=== PATIENT | male | born 1960 | race Caucasian/White ===

== ENCOUNTER 2020-12-08 20:50 | Emergency (ER) | payer OTHER ==
[2020-12-08] MEDS ORDERED: SODIUM CHLORIDE 0.9% 1,000 ML IV ONE (21:44)
[2020-12-08] MEDS ORDERED: HYDROmorphone 1 MG/ML 1 ML SYRINGE IVP STA (21:45)
[2020-12-08 22:12] LABS: Basophils # (A) 0.1 k/uL (0-0.2); Basophils % (A) 1 %; Eosinophils # (A) 0.4 k/uL (0-0.7); Eosinophils % (A) 3 %; HCT 50.8 % (39.0-53.0); HGB 17.1 gm/dL (13.0-17.5); Lymphocytes # (A) 2.1 k/uL (1.0-4.8); Lymphocytes % (A) 15 %; MCH 31.6 pg (25.0-35.0); MCHC 33.6 g/dL (31.0-37.0); MCV 93.9 fL (80.0-100.0); Mean Platelet Volume 8.4; Monocytes # (A) 0.9 k/uL (0-1.0); Monocytes % (A) 7 %; Neutrophils # (A) 9.9 k/uL (1.3-7.7); Neutrophils % (A) 73 %; Platelet Count 278 k/uL (150-450); RBC 5.41 m/uL (4.30-5.90); WBC 13.6 k/uL (3.8-10.6)
[2020-12-08 22:18] LABS: Appearance,Urine Cloudy (Clear); Bacteria,Urine Occasional /hpf; Bilirubin,Urine Negative (Negative); Blood,Urine Large (Negative); Color,Urine Yellow; Glucose,Urine (UA) Negative (Negative); Ketones,Urine Negative (Negative); Leukocyte Esterase,Urine Large (Negative); Mucus,Urine Many /hpf; Nitrite,Urine Positive (Negative); PH, Urine 6.5 (5.0-8.0); Protein,Urine 2+ (Negative); RBC,Urine >182 /hpf (0-5); Specific Gravity,Urine 1.015 (1.001-1.035); Squamous Epithelial Cell,Urine <1 /hpf (0-4); Urobilinogen,Urine <2.0 mg/dL (<2.0); WBC,Urine 97 /hpf (0-5)
[2020-12-08 22:23] LABS: ALT 15 U/L (4-49); AST 19 U/L (17-59); African American GFR (CKD) >90 (>60 ml/min/1.73 sqM); Albumin 4.3 g/dL (3.5-5.0); Alkaline Phosphatase 90 U/L (38-126); Amylase 100 U/L (30-110); Anion Gap 8 mmol/L; Blood Urea Nitrogen 10 mg/dL (9-20); Calcium 9.6 mg/dL (8.4-10.2); Carbon Dioxide 25 mmol/L (22-30); Chloride 103 mmol/L (98-107); Glucose 104 mg/dL (74-99); Lipase 107 U/L (23-300); Non-African American GFR(CKD) >90 (>60 ml/min/1.73 sqM); Potassium 4.5 mmol/L (3.5-5.1); Sodium 136 mmol/L (137-145); Total Bilirubin 0.5 mg/dL (0.2-1.3); Total Protein 7.2 g/dL (6.3-8.2)
--- NOTE | 2020-12-08 22:37 | CT ---
EXAMINATION TYPE: CT abdomen pelvis w con DATE OF EXAM: 12/08/2020 COMPARISON: None HISTORY: Suprapubic abdominal pain. Patient being treated for UTI. CT DLP: 1129.8 mGycm Automated exposure control for dose reduction was used. CONTRAST: Performed with IV Contrast, patient injected with 100 mL of Isovue 300. Images obtained from the diaphragm to the floor the pelvis with IV contrast. Lung bases are clear. There is no pleural effusion. Heart size is normal. Liver is intact. There are clips from cholecystectomy. Spleen appears normal. Stomach appears normal. There is no evidence of pancreatic mass. The bile ducts are not dilated. There is no adrenal mass. Kidneys show satisfactory contrast opacific ation. There is no hydronephrosis. Delayed images show normal renal excretion. Bladder is distended. Prostate is enlarged and measures 7 cm. There is De Santiago catheter that is malpositioned with the balloo n in the posterior urethra. There are calcifications in the dependent urinary bladder measuring up to 14 mm. There is small amount of air in the urinary bladder. There is no mesenteric edema. There is no ascites or free air. I see no bowel obstruction. There are some small bowel loops distended with fluid and measure up to 2.7 cm. Appendix is intact. There is no sign of appendicitis. There is multilevel moderate spondylotic changes in the lumbar spine. There is no compression fractur e. The bony pelvis is intact. There is moderately severe osteoarthritis in the right hip joint. There is deformity of the femoral head consistent with chronic avascular necrosis and partial collapse of the articular surface. IMPRESSION: Dilated urinary bladder measures 14 cm in length. Enlarged prostate. There is malposition of the Fole y catheter in the posterior urethra. Bladder calculi. Advanced osteoarthritis in the right hip joint with evidence for chronic avascular necrosis of the fe moral head. There are a few small bowel fluid levels that could relate to mild small bowel ileus.
--- NOTE | 2020-12-08 22:51 | ED ---
General Adult HPI - General Chief complaint: Abdominal Pain Stated complaint: Abdominal pain Time Seen by Provider: 12/08/20 21:25 Source: patient Mode of arrival: ambulatory Limitations: no limitations - History of Present Illness Initial comments: Patient presents to the ED complaining of having suprapubic abdominal pain and pressure for the past 2-3 days. Patient states that he was seen at [facility] earlier today and was given the dose of antibiotics. Patient states that no imaging study was done at that hospital. Patient states that he has a chronic indwelling Mathis catheter, and he states that he noticed some hematuria earlier today. Patient denies trauma or injury, fever or chills, headache, chest pain, dyspnea, dizziness, upper abdominal pain, back or flank pain, nausea or vomiting, diarrhea or constipation, bloody or melanotic stool, or any other symptoms or complaints. Patient denies anticoagulant medication use. - Related Data Allergies Allergy/AdvReac Type Severity Reaction Status Date / Time No Known Allergies Allergy Verified 12/08/20 20:58 Review of Systems ROS Statement: Those systems with pertinent positive or pertinent negative responses have been documented in the HPI. ROS Other: All systems not noted in ROS Statement are negative. Past Medical History Additional Past Medical History / Comment(s): mathis History of Any Multi-Drug Resistant Organisms: None Reported Past Surgical History: No Surgical Hx Reported Past Psychological History: No Psychological Hx Reported Smoking Status: Current every day smoker Past Alcohol Use History: None Reported Past Drug Use History: None Reported General Exam Limitations: no limitations General appearance: alert, in no apparent distress Head exam: Present: atraumatic Eye exam: Present: normal appearance, EOMI ENT exam: Present: mucous membranes moist Neck exam: Present: other (Trachea is in midline) Respiratory exam: Present: normal lung sounds bilaterally. Absent: respiratory distress, wheezes, rales, rhonchi, stridor Cardiovascular Exam: Present: regular rate, normal rhythm, normal heart sounds, other (Normal radial pulses bilaterally) GI/Abdominal exam: Present: soft, other (Mild suprapubic abdominal tenderness). Absent: distended, guarding, rebound Extremities exam: Absent: tenderness, pedal edema, calf tenderness Back exam: Absent: CVA tenderness (R), CVA tenderness (L) Neurological exam: Present: alert, oriented X3. Absent: motor sensory deficit Psychiatric exam: Present: normal affect, normal mood Skin exam: Present: warm, dry, intact, normal color Course Vital Signs 12/08/20 12/09/20 20:58 00:35 Temperature 98.3 F 98 F Pulse Rate 88 77 Respiratory 16 18 Rate Blood Pressure 140/97 132/82 O2 Sat by Pulse 97 98 Oximetry - Reevaluation(s) Reevaluation #1: 12/08/20 23:51 Patient is awaiting Mathis catheter replacement at this time. I suspect that the patient's symptoms are likely secondary to Mathis catheter malposition and urinary retention/bladder distention. Case was endorsed to Dr. Suh (secondary to end of my shift). Dr. Suh to take over care of the patient at this time. Medical Decision Making - Lab Data Result diagrams: 12/08/20 22:00 12/08/20 22:00 Lab Results 12/08/20 12/08/20 12/08/20 Range/Units 22:00 22:00 22:00 WBC 13.6 H (3.8-10.6) k/uL RBC 5.41 (4.30-5.90) m/uL Hgb 17.1 (13.0-17.5) gm/dL Hct 50.8 (39.0-53.0) % MCV 93.9 (80.0-100.0) fL MCH 31.6 (25.0-35.0) pg MCHC 33.6 (31.0-37.0) g/dL RDW 13.0 (11.5-15.5) % Plt Count 278 (150-450) k/uL MPV 8.4 Neutrophils % 73 % Lymphocytes % 15 % Monocytes % 7 % Eosinophils % 3 % Basophils % 1 % Neutrophils # 9.9 H (1.3-7.7) k/uL Lymphocytes # 2.1 (1.0-4.8) k/uL Monocytes # 0.9 (0-1.0) k/uL Eosinophils # 0.4 (0-0.7) k/uL Basophils # 0.1 (0-0.2) k/uL Sodium 136 L (137-145) mmol/L Potassium 4.5 (3.5-5.1) mmol/L Chloride 103 (98-107) mmol/L Carbon Dioxide 25 (22-30) mmol/L Anion Gap 8 mmol/L BUN 10 (9-20) mg/dL Creatinine 0.68 (0.66-1.25) mg/dL Est GFR (CKD-EPI)AfAm >90 (>60 ml/min/1.73 sqM) Est GFR (CKD-EPI)NonAf >90 (>60 ml/min/1.73 sqM) Glucose 104 H (74-99) mg/dL Plasma Lactic Acid Joel (0.7-2.0) mmol/L Calcium 9.6 (8.4-10.2) mg/dL Total Bilirubin 0.5 (0.2-1.3) mg/dL AST 19 (17-59) U/L ALT 15 (4-49) U/L Alkaline Phosphatase 90 (38-126) U/L Total Protein 7.2 (6.3-8.2) g/dL Albumin 4.3 (3.5-5.0) g/dL Amylase 100 (30-110) U/L Lipase 107 (23-300) U/L Urine Color Yellow Urine Appearance Cloudy (Clear) Urine pH 6.5 (5.0-8.0) Ur Specific [place] 1.015 (1.001-1.035) Urine Protein 2+ H (Negative) Urine Glucose (UA) Negative (Negative) Urine Ketones Negative (Negative) Urine Blood Large H (Negative) Urine Nitrite Positive (Negative) Urine Bilirubin Negative (Negative) Urine Urobilinogen <2.0 (<2.0) mg/dL Ur Leukocyte Esterase Large H (Negative) Urine RBC >182 H (0-5) /hpf Urine WBC 97 H (0-5) /hpf Ur Squamous Epith Cells <1 (0-4) /hpf Urine Bacteria Occasional H (None) /hpf Urine Mucus Many H (None) /hpf 12/08/20 Range/Units 22:00 WBC (3.8-10.6) k/uL RBC (4.30-5.90) m/uL Hgb (13.0-17.5) gm/dL Hct (39.0-53.0) % MCV (80.0-100.0) fL MCH (25.0-35.0) pg MCHC (31.0-37.0) g/dL RDW (11.5-15.5) % Plt Count (150-450) k/uL MPV Neutrophils % % Lymphocytes % % Monocytes % % Eosinophils % % Basophils % % Neutrophils # (1.3-7.7) k/uL Lymphocytes # (1.0-4.8) k/uL Monocytes # (0-1.0) k/uL Eosinophils # (0-0.7) k/uL Basophils # (0-0.2) k/uL Sodium (137-145) mmol/L Potassium (3.5-5.1) mmol/L Chloride (98-107) mmol/L Carbon Dioxide (22-30) mmol/L Anion Gap mmol/L BUN (9-20) mg/dL Creatinine (0.66-1.25) mg/dL Est GFR (CKD-EPI)AfAm (>60 ml/min/1.73 sqM) Est GFR (CKD-EPI)NonAf (>60 ml/min/1.73 sqM) Glucose (74-99) mg/dL Plasma Lactic Acid Joel 1.4 (0.7-2.0) mmol/L Calcium (8.4-10.2) mg/dL Total Bilirubin (0.2-1.3) mg/dL AST (17-59) U/L ALT (4-49) U/L Alkaline Phosphatase (38-126) U/L Total Protein (6.3-8.2) g/dL Albumin (3.5-5.0) g/dL Amylase (30-110) U/L Lipase (23-300) U/L Urine Color Urine Appearance (Clear) Urine pH (5.0-8.0) Ur Specific [place] (1.001-1.035) Urine Protein (Negative) Urine Glucose (UA) (Negative) Urine Ketones (Negative) Urine Blood (Negative) Urine Nitrite (Negative) Urine Bilirubin (Negative) Urine Urobilinogen (<2.0) mg/dL Ur Leukocyte Esterase (Negative) Urine RBC (0-5) /hpf Urine WBC (0-5) /hpf Ur Squamous Epith Cells (0-4) /hpf Urine Bacteria (None) /hpf Urine Mucus (None) /hpf - Radiology Data CT abdomen/pelvis with IV contrast: Dilated urinary bladder measures 14 cm in length, enlarged prostate, there is malposition of the Mathis catheter in the posterior urethra, bladder calculi, advanced osteoarthritis in the right hip joint with evidence for chronic avascular necrosis of the femoral head, there are a few small bowel fluid levels that could relate to mild small bowel ileus Disposition Clinical Impression: Urolithiasis, Urinary retention, Mathis catheter problem, UTI (urinary tract infection) Disposition: HOME SELF-CARE Is patient prescribed a controlled substance at d/c from ED?: No Referrals: None,Stated [Primary Care Provider] - 1-2 days Tho Herrera MD [STAFF PHYSICIAN] - 1-2 days Pepe Kerr MD [REFERRING] - 1-2 days
[2020-12-08] MEDS ORDERED: LIDOCAINE URO-JET JELLY 2% 5 ML KIT URETHRAL ONE (22:58)
[2020-12-09 00:35] VITALS: BP 132/82; PULSE 77; RESP 18; TEMP 98
== END 2020-12-09 00:35 | disposition home or self-care (01) ==
LOC: EC 20:50
DX: T83.021A Displacement of indwelling urethral catheter, initial encounter (principal); N21.0 Calculus in bladder; N39.0 Urinary tract infection, site not specified; M16.11 Unilateral primary osteoarthritis, right hip; K56.7 Ileus, unspecified; N40.0 Benign prostatic hyperplasia without lower urinary tract symptoms; F17.200 Nicotine dependence, unspecified, uncomplicated; Y84.6 Urinary catheterization as the cause of abnormal reaction of the patient, or of later complication, without mention of misadventure at the time of the procedure
CPT/HCPCS: 36415; 80053; 82150; 83605; 83690; 85025; 81001; 87086; 74177; 99284; 51702; 96374; 96361 ×2; J1170; Q9967

== ENCOUNTER 2021-05-17 19:22 | Emergency (ER) | payer OTHER ==
[2021-05-17 19:41] VITALS: BP 134/88; PULSE 95; RESP 18; TEMP 97.5
--- NOTE | 2021-05-17 20:48 | ED ---
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 Patient states he feels fine and has no complaints. Patient is unclear why he is here. Patient is not supposed be on a medications as far she knows. Patient does not feel he has missed any appointments. Patient denies any hallucinations. Patient denies any alcohol or street drug use. No physical complaints. Patient has been sleeping well. Patient has been eating and drinking well. Petition has concern for hallucinations and poor hygiene. (Sourav Rizzo) - Related Data Home Medications Medication Instructions Recorded Confirmed No Known Home Medications 05/17/21 05/17/21 Allergies Allergy/AdvReac Type Severity Reaction Status Date / Time No Known Allergies Allergy Verified 05/17/21 22:00 Review of Systems ROS Other: All systems not noted in ROS Statement are negative. Constitutional: Denies: fever Eyes: Denies: eye pain ENT: Denies: ear pain Respiratory: Denies: cough Cardiovascular: Denies: chest pain Endocrine: Denies: fatigue Gastrointestinal: Denies: abdominal pain Genitourinary: Denies: urgency Musculoskeletal: Denies: back pain Skin: Denies: rash Neurological: Denies: weakness <Sourav Rizzo - Last Filed: 05/17/21 20:45> ROS Other: All systems not noted in ROS Statement are negative. <Silverio Suh - Last Filed: 05/18/21 02:14> ROS Statement: Those systems with pertinent positive or pertinent negative responses have been documented in the HPI. Past Medical History Additional Past Medical History / Comment(s): mathis History of Any Multi-Drug Resistant Organisms: None Reported Past Surgical History: No Surgical Hx Reported Past Psychological History: No Psychological Hx Reported Smoking Status: Current every day smoker Past Alcohol Use History: None Reported Past Drug Use History: None Reported <Sourav Rizzo - Last Filed: 05/17/21 20:45> General Exam Limitations: no limitations General appearance: alert, in no apparent distress, other Head exam: Present: normocephalic Eye exam: Present: normal appearance Neck exam: Present: normal inspection Respiratory exam: Present: normal lung sounds bilaterally Cardiovascular Exam: Present: regular rate, normal rhythm GI/Abdominal exam: Present: soft. Absent: tenderness Extremities exam: Present: normal inspection Neurological exam: Present: alert, oriented X3. Absent: motor sensory deficit Psychiatric exam: Present: normal affect, normal mood Skin exam: Present: normal color <Sourav Rizzo - Last Filed: 05/17/21 20:45> Course <Silverio Suh - Last Filed: 05/18/21 02:14> Vital Signs 05/17/21 19:38 Temperature 97.5 F L Pulse Rate 95 Respiratory 18 Rate Blood Pressure 134/88 O2 Sat by Pulse 97 Oximetry - Reevaluation(s) Reevaluation #1: 05/18/21 02:14 Medical record is reviewed (Silverio Suh) Reevaluation #2: 05/18/21 02:14 Medically clear for psychiatric evaluation (Silverio Suh) Medical Decision Making <Silverio Suh - Last Filed: 05/18/21 02:14> - Medical Decision Making 60 male seen and evaluated in the emergency department today. Patient's seen for psychiatric evaluation and continued stable for discharge home (Silverio Suh) - Lab Data Lab Results 05/18/21 Range/Units 01:50 Urine Color Yellow Urine Appearance Turbid (Clear) Urine pH 7.0 (5.0-8.0) Ur Specific [place] 1.024 (1.001-1.035) Urine Protein 3+ H (Negative) Urine Glucose (UA) Negative (Negative) Urine Ketones Negative (Negative) Urine Blood Large H (Negative) Urine Nitrite Negative (Negative) Urine Bilirubin Negative (Negative) Urine Urobilinogen 3.0 (<2.0) mg/dL Ur Leukocyte Esterase Large H (Negative) Urine RBC >182 H (0-5) /hpf Urine WBC >182 H (0-5) /hpf Ur Squamous Epith Cells 1 (0-4) /hpf Urine Mucus Few H (None) /hpf Disposition <Sourav Rizzo - Last Filed: 10/29/21 20:45> Is patient prescribed a controlled substance at d/c from ED?: No <Silverio Suh - Last Filed: 05/18/21 02:14> Clinical Impression: Acute psychosis, Chronic schizophrenia, Psychosis Disposition: HOME SELF-CARE Condition: Fair Instructions (If sedation given, give patient instructions): Schizophrenia (ED) Referrals: Jackson Rodriguez MD [Primary Care Provider] - 1-2 days
[2021-05-18 02:10] LABS: Appearance,Urine Turbid (Clear); Bilirubin,Urine Negative (Negative); Blood,Urine Large (Negative); Color,Urine Yellow; Glucose,Urine (UA) Negative (Negative); Ketones,Urine Negative (Negative); Leukocyte Esterase,Urine Large (Negative); Mucus,Urine Few /hpf; Nitrite,Urine Negative (Negative); Protein,Urine 3+ (Negative); RBC,Urine >182 /hpf (0-5); Specific Gravity,Urine 1.024 (1.001-1.035); Squamous Epithelial Cell,Urine 1 /hpf (0-4); WBC,Urine >182 /hpf (0-5)
[2021-05-18 02:19] LABS: Amphetamine Screen,Urine Not Detected (NotDetected); Benzodiazepines Screen,Urine Not Detected (NotDetected); Cocaine Screen,Urine Not Detected (NotDetected); Opiate Screen,Urine Not Detected (NotDetected); Phencyclidine Screen,Urine Not Detected (NotDetected); Urn Cannabinoid Scrn Not Detected (NotDetected)
[2021-05-18 02:20] LABS: Barbiturate Screen,Urine Not Detected (NotDetected); Methadone Screen, Urine Not Detected (NotDetected); Oxycodone Screen, Urine Not Detected (NotDetected); Tricyclic Antidepressant,Urine Not Detected (NotDetected)
== END 2021-05-18 04:45 | disposition home or self-care (01) ==
LOC: EC 19:22 → EEVIPCON 19:22 → EC 05-18 04:45
DX: F23 Brief psychotic disorder (principal); F25.8 Other schizoaffective disorders; F17.200 Nicotine dependence, unspecified, uncomplicated
CPT/HCPCS: 80306; 81001; 87086; 99284

== ENCOUNTER 2022-10-30 11:45 | Emergency (ER) | payer OTHER ==
[2022-10-30 12:09] VITALS: TEMP 98
[2022-10-30 13:15] LABS: ALT 30 U/L (4-49); AST 21 U/L (17-59); Albumin 4.2 g/dL (3.5-5.0); Alkaline Phosphatase 69 U/L (38-126); Anion Gap 5 mmol/L; Blood Urea Nitrogen 20 mg/dL (9-20); Calcium 9.2 mg/dL (8.4-10.2); Carbon Dioxide 28 mmol/L (22-30); Chloride 106 mmol/L (98-107); Glucose 99 mg/dL (74-99); Potassium 4.4 mmol/L (3.5-5.1); Sodium 139 mmol/L (137-145); Total Bilirubin 0.6 mg/dL (0.2-1.3); Total Protein 7.1 g/dL (6.3-8.2)
[2022-10-30 13:16] VITALS: RESP 18
[2022-10-30 13:18] LABS: Basophils % (A) 0 %; Eosinophils # (A) 0.1 k/uL (0-0.7); Eosinophils % (A) 1 %; HCT 40.6 % (39.0-53.0); HGB 13.9 gm/dL (13.0-17.5); Lymphocytes # (A) 1.1 k/uL (1.0-4.8); Lymphocytes % (A) 11 %; MCH 31.3 pg (25.0-35.0); MCHC 34.3 g/dL (31.0-37.0); MCV 91.3 fL (80.0-100.0); Mean Platelet Volume 7.8; Monocytes # (A) 0.8 k/uL (0-1.0); Monocytes % (A) 8 %; Neutrophils # (A) 7.8 k/uL (1.3-7.7); Neutrophils % (A) 78 %; Platelet Count 271 k/uL (150-450); RBC 4.45 m/uL (4.30-5.90)
[2022-10-30 13:30] LABS: African American GFR (CKD) >90 (>60 ml/min/1.73 sqM); Non-African American GFR(CKD) >90 (>60 ml/min/1.73 sqM)
[2022-10-30] MEDS ORDERED: IBUPROFEN 800 MG TAB PO STA (13:52)
[2022-10-30 15:40] LABS: Appearance,Urine Cloudy (Clear); Bacteria,Urine Rare /hpf; Bilirubin,Urine Negative (Negative); Blood,Urine Large (Negative); Color,Urine Yellow; Glucose,Urine (UA) Negative (Negative); Ketones,Urine Negative (Negative); Leukocyte Esterase,Urine Large (Negative); Mucus,Urine Rare /hpf; Nitrite,Urine Negative (Negative); PH, Urine 7.5 (5.0-8.0); Protein,Urine 2+ (Negative); RBC,Urine >182 /hpf (0-5); Specific Gravity,Urine 1.015 (1.001-1.035); Urobilinogen,Urine <2.0 mg/dL (<2.0); WBC,Urine 151 /hpf (0-5)
--- NOTE | 2022-10-30 18:05 | CT ---
EXAMINATION TYPE: CT abdomen pelvis wo con DATE OF EXAM: 10/30/2022 HISTORY: Hematuria, renal stone concern CT DLP: 807.1 mGycm. Automated Exposure Control for Dose Reduction was Utilized. TECHNIQUE: CT scan of the abdomen and pelvis is performed without oral or IV contrast. COMPARISON: CT 12/08/2020 FINDINGS: Within the limitations of a non-contrast study, the following observations are made. LUNG BASES: No acute process. Coronary calcifications noted. LIVER/GB: No significant abnormality is appreciated. PANCREAS: No significant abnormality is seen. SPLEEN: No significant abnormality is seen. ADRENALS: No significant abnormality is seen. KIDNEYS, URETERS AND BLADDER: There is a 4 x 3 x 2 cm calcification in urinary bladder, related to th e right UVJ, and there is prominent right ureterectasis from the UVJ up to the kidney where there is moderate right hydronephrosis. There is relatively mild left hydronephrosis and hydroureter down to the left UPJ. No right or left renal or ureteral calcifications. The urinary bladder shows circumferential mural thickening consistent with bladder outlet obstruction . There is severe prostatomegaly. BOWEL: No significant abnormality is seen. Appendix is negative. VASCULATURE: No abdominal aneurysm. Atherosclerotic intimal calcifications seen throughout the arteri al anatomy, including the coronaries. LYMPH NODES: No greater than 1cm abdominal or pelvic lymph nodes are appreciated. OSSEOUS STRUCTURES: No focal lesions. End-stage right hip osteoarthritis changes noted. Study limitation: Without intravenous contrast, there is limited CT sensitivity, particularly for foc al visceral lesions, intraluminal filling defects, and vascular pathology. IMPRESSION: Moderate-marked right hydronephrosis/hydroureter.
[2022-10-30] MEDS ORDERED: SULFAMETHOX-TMP 800-160MG 1 EACH TAB PO STA (18:11)
--- NOTE | 2022-10-30 18:13 | ED ---
Male Urogenital HPI - General Chief complaint: Urogenital Stated complaint: Abd Pain Time Seen by Provider: 10/30/22 11:58 Source: patient Mode of arrival: EMS Limitations: no limitations - History of Present Illness Initial comments: Patient is a 62-year-old male who presents to the emergency department for blood in urine. Patient wears a condom cath he cannot explain to me why he has the condom cath. He follows with urology he cannot remember the name. During his shower today patient saw a small blood clot, from his penis. He reports pain in his lower middle abdomen. No back pain. No fever, chills, nausea, vomiting. - Related Data Home Medications Medication Instructions Recorded Confirmed Acetaminophen Tab [Tylenol Tab] 500 mg PO Q8H PRN 10/30/22 10/30/22 Acetaminophen Tab [Tylenol] 650 mg PO Q4H PRN 10/30/22 10/30/22 Irena-Lanta 15 ml PO BID PRN 10/30/22 10/30/22 Ibuprofen [Motrin] 800 mg PO Q8H PRN 10/30/22 10/30/22 Kaolin Pectin 30 ml PO DIRECTED PRN 10/30/22 10/30/22 Magnesium Hydroxide [Milk of 2,400 mg PO DIRECTED PRN 10/30/22 10/30/22 Magnesia] Nicotine Polacrilex [Nicotine Gum] 4 mg BUCCAL DIRECTED 10/30/22 10/30/22 Paliperidone IM [Invega Sustenna] 156 mg IM Q28D 10/30/22 10/30/22 guaiFENesin SYRUP 100MG/5ML 200 mg PO Q6H PRN 10/30/22 10/30/22 [Robitussin] Previous Rx's Medication Instructions Recorded Ibuprofen [Motrin] 800 mg PO Q8HR PRN #30 tab 10/30/22 Sulfamethox-Tmp 800-160Mg [Bactrim 1 each PO Q12HR #20 tab 10/30/22 Ds] Allergies Allergy/AdvReac Type Severity Reaction Status Date / Time No Known Allergies Allergy Verified 10/30/22 17:28 Review of Systems ROS Statement: Those systems with pertinent positive or pertinent negative responses have been documented in the HPI. ROS Other: All systems not noted in ROS Statement are negative. Past Medical History Additional Past Medical History / Comment(s): mathis History of Any Multi-Drug Resistant Organisms: None Reported Past Surgical History: No Surgical Hx Reported Past Psychological History: Schizophrenia Smoking Status: Current every day smoker Past Alcohol Use History: None Reported Past Drug Use History: None Reported General Exam Limitations: no limitations General appearance: alert, in no apparent distress Head exam: Present: atraumatic, normocephalic, normal inspection Eye exam: Present: normal appearance, PERRL, EOMI. Absent: scleral icterus, conjunctival injection, periorbital swelling Respiratory exam: Present: normal lung sounds bilaterally. Absent: respiratory distress, wheezes, rales, rhonchi, stridor Cardiovascular Exam: Present: regular rate, normal rhythm, normal heart sounds. Absent: systolic murmur, diastolic murmur, rubs, gallop, clicks GI/Abdominal exam: Present: soft, tenderness (suprapubic mild), normal bowel sounds. Absent: distended, guarding, rebound, rigid exam: Present: normal inspection External exam: Present: normal external exam. Absent: erythema, swelling Back exam: Present: normal inspection, full ROM. Absent: CVA tenderness (R), CVA tenderness (L), paraspinal tenderness, vertebral tenderness Neurological exam: Present: alert, oriented X3, CN II-XII intact Psychiatric exam: Present: normal affect, normal mood Skin exam: Present: warm, dry, intact, normal color. Absent: rash Course Vital Signs 10/30/22 10/30/22 10/30/22 11:49 13:16 16:00 Temperature 98 F Pulse Rate 92 86 85 Respiratory 20 18 Rate Blood Pressure 118/82 120/86 116/90 O2 Sat by Pulse 95 99 Oximetry Medical Decision Making - Medical Decision Making Was pt. sent in by a medical professional or institution (, PA, RETAIL BUYER, urgent care, hospital, or detention...) When possible be specific @ -[No] Did you speak to anyone other than the patient for history (EMS, parent, family, police, friend...)? What history was obtained from this source @ -[No] Did you review nursing and triage notes (agree or disagree)? Why? @ -[I reviewed and agree with nursing and triage notes] Were old charts reviewed (outside hosp., previous admission, EMS record, old EKG, old radiological studies, urgent care reports/EKG's, detention records)? Report findings @ -[No old charts were reviewed] Differential Diagnosis (chest pain, altered mental status, abdominal pain women, abdominal pain men, vaginal bleeding, weakness, fever, dyspnea, syncope, headache, dizziness, GI bleed, back pain, seizure, CVA, palpatations, mental health)? @ -Urinary tract infection, kidney stone, bladder stone, kidney infection EKG interpreted by me (3pts min.). @ -[As above] X-rays interpreted by me (1pt min.). @ -[None done] CT interpreted by me (1pt min.). @ -Yes, CT of the abdomen and pelvis without contrast shows a 4 x 3 x 2 cm stone in the bladder. There is moderate right hydronephrosis U/S interpreted by me (1pt. min.). @ -[None done] What testing was considered but not performed or refused? (CT, X-rays, U/S, labs)? Why? @ -[None] What meds were considered but not given or refused? Why? @ -[None] Did you discuss the management of the patient with other professionals (professionals i.e. , PA, RETAIL BUYER, lab, RT, psych nurse, social worker delinquency prevention, certified wellness program manager, teacher, contracts officer, casework manager)? Give summary @ -[No] Was smoking cessation discussed for >3mins.? @ -[No] Was critical care preformed (if so, how long)? @ -[No] Were there social determinants of health that impacted care today? How? (Homelessness, low income, unemployed, alcoholism, drug addiction, transportation, low edu. Level, literacy, decrease access to med. care, shelter, rehab)? @ -[No] Was there de-escalation of care discussed even if they declined (Discuss DNR or withdrawal of care, Hospice)? DNR status @ -[No] What co-morbidities impacted this encounter? (DM, HTN, Smoking, COPD, CAD, Cancer, CVA, ARF, Chemo, Hep., AIDS, mental health diagnosis, sleep apnea, morbid obesity)? @ -[None] Was patient admitted / discharged? Hospital course, mention meds given and route, prescriptions, significant lab abnormalities, going to OR and other pertinent info. @ Patient presenting with suprapubic pain and concern for blood clot from penis. There is gross hematuria in catheter bag. Laboratory studies obtained. There is no leukocytosis. Urinalysis is concerning for infection and there is significant blood. CT of the abdomen and pelvis with contrast shows a bladder stone with moderate right hydronephrosis and mild left hydronephrosis. Results discussed with patient. With normal kidney function, no fever, vomiting, or leukocytosis patient can manage this outpatient with his urologist. He will placed on Bactrim for a small urinary tract infection. We discussed return parameters. Undiagnosed new problem with uncertain prognosis? @ -[No] Drug Therapy requiring intensive monitoring for toxicity (Heparin, Nitro, Insulin, Cardizem)? @ -[No] Were any procedures done? @ -[No] Diagnosis/symptom? @ -bladder stone, UTI Acute, or Chronic, or Acute on Chronic? @ -acute Uncomplicated (without systemic symptoms) or Complicated (systemic symptoms)? @ -uncomplicated Side effects of treatment? @ -[No] Exacerbation, Progression, or Severe Exacerbation? @ -[No] Poses a threat to life or bodily function? How? (Chest pain, USA, IA, pneumonia, PE, COPD, DKA, ARF, appy, cholecystitis, CVA, Diverticulitis, Homicidal, Suicidal, threat to staff... and all critical care pts) @ -[No] Dr. Woodson is my attending - Lab Data Result diagrams: 10/30/22 12:46 10/30/22 12:46 Lab Results 10/30/22 10/30/22 10/30/22 Range/Units 12:46 12:46 14:19 WBC 10.0 (3.8-10.6) k/uL RBC 4.45 (4.30-5.90) m/uL Hgb 13.9 (13.0-17.5) gm/dL Hct 40.6 (39.0-53.0) % MCV 91.3 (80.0-100.0) fL MCH 31.3 (25.0-35.0) pg MCHC 34.3 (31.0-37.0) g/dL RDW 13.0 (11.5-15.5) % Plt Count 271 (150-450) k/uL MPV 7.8 Neutrophils % 78 % Lymphocytes % 11 % Monocytes % 8 % Eosinophils % 1 % Basophils % 0 % Neutrophils # 7.8 H (1.3-7.7) k/uL Lymphocytes # 1.1 (1.0-4.8) k/uL Monocytes # 0.8 (0-1.0) k/uL Eosinophils # 0.1 (0-0.7) k/uL Basophils # 0.0 (0-0.2) k/uL Sodium 139 (137-145) mmol/L Potassium 4.4 (3.5-5.1) mmol/L Chloride 106 (98-107) mmol/L Carbon Dioxide 28 (22-30) mmol/L Anion Gap 5 mmol/L BUN 20 (9-20) mg/dL Creatinine 0.68 (0.66-1.25) mg/dL Est GFR (CKD-EPI)AfAm >90 (>60 ml/min/1.73 sqM) Est GFR (CKD-EPI)NonAf >90 (>60 ml/min/1.73 sqM) Glucose 99 (74-99) mg/dL Calcium 9.2 (8.4-10.2) mg/dL Total Bilirubin 0.6 (0.2-1.3) mg/dL AST 21 (17-59) U/L ALT 30 (4-49) U/L Alkaline Phosphatase 69 (38-126) U/L Total Protein 7.1 (6.3-8.2) g/dL Albumin 4.2 (3.5-5.0) g/dL Urine Color Yellow Urine Appearance Cloudy (Clear) Urine pH 7.5 (5.0-8.0) Ur Specific Neely 1.015 (1.001-1.035) Urine Protein 2+ H (Negative) Urine Glucose (UA) Negative (Negative) Urine Ketones Negative (Negative) Urine Blood Large H (Negative) Urine Nitrite Negative (Negative) Urine Bilirubin Negative (Negative) Urine Urobilinogen <2.0 (<2.0) mg/dL Ur Leukocyte Esterase Large H (Negative) Urine RBC >182 H (0-5) /hpf Urine WBC 151 H (0-5) /hpf Urine Bacteria Rare H (None) /hpf Urine Mucus Rare H (None) /hpf Disposition Clinical Impression: Bladder stone, UTI (urinary tract infection) Disposition: HOME SELF-CARE Condition: Good Instructions (If sedation given, give patient instructions): Urinary Tract Infection in Men (ED), Bladder Stones (ED) Additional Instructions: Take antibiotic as directed. Increase water intake. Follow-up with urology in 1-2 days. Return to the emergency department if you experience new, concerning, or worsening symptoms. Prescriptions: Sulfamethox-Tmp 800-160Mg [Bactrim Ds] 1 each PO Q12HR #20 tab Ibuprofen [Motrin] 800 mg PO Q8HR PRN #30 tab PRN Reason: Pain Is patient prescribed a controlled substance at d/c from ED?: No Referrals: None,Stated [Primary Care Provider] - 1-2 days
[2022-10-30 20:14] VITALS: BP 120/90; PULSE 87
== END 2022-10-30 20:51 | disposition home or self-care (01) ==
LOC: EC 11:45
DX: N13.2 Hydronephrosis with renal and ureteral calculous obstruction (principal); N21.0 Calculus in bladder; N39.0 Urinary tract infection, site not specified; F17.200 Nicotine dependence, unspecified, uncomplicated
CPT/HCPCS: 36415; 74176; 80053; 81001; 85025; 87086; 99285